=== PATIENT | female | born 1980 | race Caucasian/White ===

== ENCOUNTER 2017-02-07 01:35 | Emergency (ER) | payer SELFPAY ==
[~2017-02-07 01:35] MED LIST: AMOXICILLIN875 MG PO; AMOXIL875 MG PO; ANEXSIA 5/325 M1 TAB; BACTRIM DS TABL1 TAB PO; BACTRIM DS1 TA1 PO; BACTROBAN22 GM TP; CIPRO250 MG PO; CIPRO500 MG PO; DARVOCET-N 1001 TAB; DARVOCET-N 1001 TAB PO; ESTRACE0.5 MG; IBUPROFEN200 MG; IBUPROFEN600 MG PO; IBUPROFEN800 MG; NORCO 10/325 TA1 TAB PO; NORCO 5/325 TAB1 TAB PO; NORCO 7.5/325 T1 TAB PO; OPANA; PERCOCET 5/3251 TAB PO; PROCTOFOAM15 GM RC; VIBRAMYCIN100 MG PO; ZITHROMAX250MG Z-PAK PO; ZOFRAN ODT4 MG/UDTAB PO; ZOFRAN4 MG PO; [UNRECOGNIZED DRUG - OTHER]; [UNRECOGNIZED DRUG - OTHER] TP
[2017-02-07] MEDS ORDERED: PENICILLIN V P500 M1 PO ×2 (02:06→03:24)
[2017-02-07] MEDS ORDERED: HYDROCODON-ACE1 EA16 PO (02:06)
[2017-02-07] MEDS ORDERED: BACTRIM DS TAB1 EAC2 PO (03:24)
[2017-02-07] MEDS ORDERED: NORCO 5-325 TA1 EACH PO (03:27)
== END 2017-02-07 03:35 ==
LOC: EDMED 01:35
PROC: 0H9HXZZ Drainage of Right Upper Leg Skin, External Approach (ICD-10-PCS; principal; 2017-02-07)
DX: L02.415 Cutaneous abscess of right lower limb (principal); K04.7 Periapical abscess without sinus; K02.9 Dental caries, unspecified; F17.210 Nicotine dependence, cigarettes, uncomplicated
CPT/HCPCS: J1170; J1885